=== PATIENT | female | born 1985 | race Caucasian/White ===

== ENCOUNTER 2020-07-13 08:51 | Emergency (ER) | payer OTHER, SELFPAY ==
[2020-07-13] MEDS ORDERED: Sodium Chloride 0.9% 1,000 ML ONE (09:19)
[2020-07-13] MEDS ORDERED: Acetaminophen 500 MG TAB ONE (09:19)
[2020-07-13 09:36] LABS: Bilirubin Small (Negative); Blood, Urine Negative (Negative); Glucose, Urine (Dipstick) Negative (Negative); Ketone, Urine Negative (Negative); Leukocyte Large (Negative); Nitrite Negative (Negative); Protein, Urine (Dipstick) 100 mg/dL (Neg-Trace); pH, Urine 5.5 (5.0-9.0)
[2020-07-13 09:44] LABS: Clarity Cloudy (Clear); Specific Gravity, Urine 1.032 (1.002-1.036)
[2020-07-13 09:45] LABS: Bacteria/HPF 1+ HPF (None Seen); Other Microscopic Description C&S SET UP; RBC/HPF 0-3 HPF (0-3)
[2020-07-13 09:46] LABS: Pregnancy Test - Urine (BHCG) Negative (Negative); Pregu Control Background? CLEAR/WHITE (CLR/WHITE); Pregu Control Bar Appear? YES (CONTROL BAR); Specific Gravity 1.032 (1.002-1.036)
[2020-07-13 09:50] LABS: ALT (SGPT) 13 U/L (8-55); AST (SGOT) 11 U/L (5-34); Albumin 3.7 g/dL (3.5-5.0); Alkaline Phosphatase 113 U/L (40-110); Anion Gap 15 mmol/L (10-20); BUN (Urea Nitrogen) 10 mg/dL (7.0-18.7); Calc. Creatinine Clearance 0 mL/min (70-130); Calcium 8.9 mg/dL (7.8-10.44); Carbon Dioxide 23 mmol/L (22-29); Chloride 103 mmol/L (98-107); Estimated GFR-MDRD 82; Globulin 3.7 g/dL (2.4-3.5); Glucose 120 mg/dL (70-105); Potassium 3.8 mmol/L (3.5-5.1); Protein, Total 7.4 g/dL (6.0-8.3); Sodium 137 mmol/L (136-145)
[2020-07-13 09:52] LABS: Band 5 % (5-11); Hemoglobin 13.1 g/dL (12.0-16.0); Lymphocytes 2 % (21-51); MDiff Complete? YES; Mean Corpuscular HGB CONC 31.1 g/dL (32.0-36.0); Mean Corpuscular Hemoglobin 26.9 pg (27.0-31.0); Mean Corpuscular Volume 86.5 fL (78.0-98.0); Mean Platelet Volume 8.5 fL (7.4-10.4); Monocytes 2 % (0-10); Neutrophil 91 % (42-75); Platelet Count 244 thou/uL (130-400); RBC Distribution Width 12.6 % (11.5-14.5); Red Blood Cell (RBC) Count 4.88 mill/uL (4.20-5.40); White Blood Cell (WBC) Count 27.6 thou/uL (4.8-10.8)
--- NOTE | 2020-07-13 10:12 | CT ---
CT of the abdomen and pelvis: 07/13/2020 COMPARISON: None HISTORY: Suprapubic pain, right lower quadrant pain, right flank pain TECHNIQUE: Axial CT imaging obtained at 5 mm intervals from the lung bases through the pubic symphysi s with IV contrast. Coronal and sagittal reformatted imaging obtained FINDINGS: The visualized lung bases are unremarkable. No free intraperitoneal air or fluid. The liver, spleen, gallbladder, pancreas, adrenal glands, and kidneys are unremarkable. Evaluation of the bowel is limited without oral contrast media. No evidence for bowel obstruction. The appendix is unremarkable. There is subtle mild wall thickening of distal small bowel loops within the right lower quadrant with minimal associated stranding of the fat within the right lower quadrant which could be related to mild inflammatory change. No lymphadenopathy is seen within the abdomen/pelvis. No worrisome lytic or blastic bone lesion. Urin kiel bladder is decompressed and poorly assessed on this exam. There is disc space narrowing with degenerative endplate change, vacuum disc formation, anterior oste ophyte formation, and osteophyte encroachment on bilateral neural foramina at the lumbosacral junction. IMPRESSION: No evidence for appendicitis, small bowel obstruction, or free intraperitoneal air. Mild small bowel wall thickening distally within the right lower quadrant with minimal adjacent fat stranding which may signify mild inflammatory change/ileitis. This could be related to inflammatory b owel disease or an infectious process. Follow-up following treatment suggested to document resolution.
[2020-07-13] MEDS ORDERED: Iopamidol 370 76% 100 ML VIAL ONE (10:53)
== END 2020-07-13 11:10 | disposition home or self-care (01) ==
LOC: MADERS 08:51
DX: K52.9 Noninfective gastroenteritis and colitis, unspecified (principal); E66.9 Obesity, unspecified; I10 Essential (primary) hypertension; Z79.899 Other long term (current) drug therapy
CPT/HCPCS: 36415; 74177; 80053; 81003; 81015; 81025; 83605; 85025; 87086; J7050; Q9967

== ENCOUNTER 2021-07-28 17:27 | Emergency (ER) | payer MEDICAID, OTHER, SELFPAY | END 2021-07-28 18:41 | disposition home or self-care (01) | LOC: MADERS 17:27 | DX: Z32.00 Encounter for pregnancy test, result unknown (principal); I10 Essential (primary) hypertension; E66.9 Obesity, unspecified | CPT/HCPCS: 99281 ==